=== PATIENT | female | born 1985 | race Caucasian/White ===

== ENCOUNTER 2020-11-12 05:19 | Emergency (ER) | payer OTHER, SELFPAY ==
[2020-11-12 05:44] VITALS: BP 136/48; PULSE 79; RESP 18; TEMP 36.3; O2SAT 99; BMI 29.2
--- NOTE | 2020-11-12 06:55 | ED.GENADULT ---
HPI - General Adult General Chief complaint: Neck Pain/Injury Stated complaint: NECK/SHOULDER PAIN Time Seen by Provider: 11/12/20 06:17 Source: patient Mode of arrival: ambulatory History of Present Illness HPI narrative: 35-year-old female with history of RA currently on methotrexate and Humira presents with pain across the right shoulder that extends from the right paraspinal neck and she states extends down until just before her right elbow. She denies any numbness or tingling or weakness into the right upper extremity, denies any fevers/chills, denies sleeping in a bad position or any new physical activity that might have caused a muscle strain. Related Data Previous Rx's Medication Instructions Recorded cyclobenzaprine 10 mg PO BEDTIME PRN #3 tab 11/12/20 ketorolac 10 mg PO Q6H PRN 5 Days #20 tab 11/12/20 Allergies Allergy/AdvReac Type Severity Reaction Status Date / Time No Known Allergies Allergy Unverified 03/22/20 16:19 [No Known Allergies*] shrimp Allergy Unknown facial Uncoded 03/31/19 00:00 swelling Review of Systems Review of Systems: Pertinent positives and negatives as stated in HPI 10 point review of systems is otherwise negative. PMFSH Past Medical History Source: nursing notes reviewed Medical History Asthma Rheumatoid arthritis Tendinitis Social History Social History Advance Directives: No Advance Directives Information Provided: No Patient : No Physical Exam Vital Signs: Vital Signs: Last Vital Signs Temp 97.3 F 11/12/20 05:44 Pulse 79 11/12/20 05:44 Resp 18 11/12/20 05:44 BP 136/48 L 11/12/20 05:44 Pulse Ox 99 11/12/20 05:44 Body Mass Index 29.2 VITAL SIGNS: Reviewed. GENERAL: Well developed, well nourished, in no acute distress. HEAD: Normocephalic/atraumatic EYES: PERRLA, EOMI= OROPHARYNX: no oral lesions noted, posterior pharynx clear = NECK: Supple, no adenopathy LUNGS: Normal breath sounds. No adventitious sounds or accessory muscle use. SpO2<99> CARDIOVASCULAR: Regular rate and rhythm without noted murmurs ABDOMEN: Soft, non-tender, non-distended with bowel sounds. MUSCULOSKELETAL: Noted firmness over the right trapezius extending from base of right neck out to shoulder and mildly tender on palpation EXTREMITIES: No cyanosis, clubbing or edema. SKIN: Inspection of the skin reveals no rashes NEUROLOGIC: Alert and oriented x 4. Strength and sensation to light touch were grossly intact x 4, symmetric hand health and physical education professor 5/5, neurovascular intact to both upper extremities Course Course Course Narrative: 35-year-old female with history and clinical presentation most consistent with muscle spasm and will treat with combination analgesics and lidocaine patch. No evidence of infection at this time and low clinical suspicion for a shingles type presentation. On re-evaluation patient reports good improvement of her pain and will be discharged in stable condition. She has follow-up appointment with her commercial sales consultant this afternoon at 3:00 p.m.. Discharge Plan Discharge Clinical Impression: Muscle spasm Patient Disposition: Home, Self-Care Instructions: Muscle Spasm (ED) Additional Instructions: Please follow-up with your commercial sales consultant as scheduled. Tylenol 1000 mg, orally, every 6 hours as needed for pain control. Do not exceed 4000 mg within 24 hours. Lidocaine patch, these are available in every [facility], apply to area of maximal tenderness as directed on the outside packaging. Return to the emergency department should you experience any acute worsening or change in symptoms. Prescriptions: New cyclobenzaprine 10 mg tablet 10 mg PO BEDTIME PRN (Reason: muscle spasm) Qty: 3 RF: 0 ketorolac 10 mg tablet 10 mg PO Q6H PRN (Reason: pain) 5 Days Qty: 20 RF: 0 Referrals: Josh Trammell MD [Primary Care Provider] - 2 days
[2020-11-12] MEDS: Lidocaine 4 % Patch ADH..PATCH 1 PATCH TRANSDERMA (07:06)
[2020-11-12] MEDS: Acetaminophen 325 MG TABLET 975 MG PO (07:06)
[2020-11-12] MEDS: Ketorolac Tromethamine 15 MG/ML VIAL IM (07:06)
== END 2020-11-12 07:31 | disposition home or self-care (01) ==
PROVIDERS: Emergency Provider Student in an Organized Health Care Education/Training Program; PCP Internal Medicine
DX: M54.2 Cervicalgia (principal); M62.838 Other muscle spasm; Z79.899 Other long term (current) drug therapy
CPT/HCPCS: 96372; 99283; 99284; J1885

== ENCOUNTER 2020-11-25 16:22 | Emergency (ER) | payer OTHER, SELFPAY ==
--- NOTE | ~2020-11-25 | CT_ITS ---
EXAMINATION: CT ABDOMEN AND PELVIS WITHOUT CONTRAST CLINICAL INFORMATION: Severe left flank pain. History of kidney stones COMPARISON: Portions of a previous CT 07/21/16 TECHNIQUE: Multidetector volumetric imaging was performed from the superior aspect of the liver through the pubic symphysis. Sagittal and coronal reformatted images were obtained on the technologist's workstation. This CT examination was performed using dose optimization techniques as appropriate, variously including the following: *Automated exposure control *Adjustment of mA and/or kV according to patient size (this includes techniques or standardized protocols for targeted exams where dose is matched to indication/reason for exam; i.e. extremities or head) *Use of iterative reconstruction technique DLP: 522 mGy-cm FINDINGS: Digital Skate Boarder: Densities overlie the patient. Nonobstructed gas pattern. LUNG BASES: No suspicious abnormality in the visualized lower chest LIVER, GALLBLADDER, AND BILIARY TREE: The liver contour appears smooth. No focal liver lesion. There is no opaque gallstone. The gallbladder is not distended. There is no biliary dilation PANCREAS: No definite abnormality SPLEEN: Within normal limits ADRENAL GLANDS: Normal KIDNEYS AND URETERS: There is no dilation of the urinary collecting system on either side. No suspicious renal mass. There is a nonobstructing 0.3 cm calculus in the upper pole of the right kidney 9 cm from the skin BLADDER: The bladder is essentially empty. No definite abnormality. GASTROINTESTINAL TRACT: No localized colonic wall thickening. No CT evidence of acute appendicitis. No small bowel dilation. No definite abnormality of the stomach. ABDOMINAL WALL: No significant hernia is appreciated. LYMPH NODES: There are no measurably enlarged abdominal or pelvic lymph nodes. No significant free intraperitoneal fluid. VASCULAR: There is no abdominal aortic aneurysm. PELVIC VISCERA: Limited assessment. No large abnormality. OSSEOUS STRUCTURES: No suspicious abnormality. CT/CT abdomen pelvis wo con IMPRESSION: No etiology for acute left flank pain. Specifically there is no evidence of left-sided urinary obstruction. There is a small nonobstructing upper pole right renal calculus.
[2020-11-25 16:35] VITALS: BP 109/76; PULSE 84; RESP 18; TEMP 36.7; O2SAT 98; BMI 29.2
--- NOTE | 2020-11-25 16:36 | ED.ABDPAIN ---
HPI - Abdominal Pain General Chief Complaint: Abdominal Pain Stated Complaint: Kidney Stone? Time Seen by Provider: 11/25/20 16:35 Source: patient Mode of arrival: ambulatory Limitations: no limitations History of Present Illness HPI narrative: 35 y/o female with history of asthma, kidney stones s/p ureteral stent in 2017 presenting with acute onset of nontraumatic left flank pain that started this morning, currently 10/10. No urinary symptoms. No N/V/D no fevers. She states she woke up with the pain, initially thought it was tightness and spasm from sleeping in an uncomfortable position. The pain worsened throughout the day as she moved around more. It feels similar to her prior kidney stone pain. MD elicited complaint: flank pain Pertinent past history: kidney stones Related Data Previous Rx's Medication Instructions Recorded cyclobenzaprine 10 mg PO BEDTIME PRN #3 tab 11/12/20 ketorolac 10 mg PO Q6H PRN 5 Days #20 tab 11/12/20 cyclobenzaprine 10 mg PO TID PRN #10 tab 11/25/20 ibuprofen 800 mg PO Q8H PRN #15 tab 11/25/20 lidocaine [Lidoderm] 1 patch TOPICAL DAILY #15 ea 11/25/20 Allergies Allergy/AdvReac Type Severity Reaction Status Date / Time No Known Allergies Allergy Verified 11/25/20 16:35 [No Known Allergies*] shrimp Allergy Unknown facial Uncoded 03/31/19 00:00 swelling Review of Systems Review of Systems Constitutional: No Fever, No Chills ENT/Mouth: No sore throat, No Rhinorrhea, No Swallowing Difficulty Eyes: No Eye Pain, No Swelling, No Redness Cardiovascular: No Chest Pain, No SOB, No Orthopnea, No Edema Respiratory: No Cough, No Sputum, No Wheezing, No dyspnea Gastrointestinal: No Nausea, No Vomiting, No Diarrhea, + abdominal Pain, No Hematochezia, No Melena Genitourinary: No Dysuria, No Urinary Frequency, No Hematuria Musculoskeletal: No joint pain, No Myalgias Skin: No Skin Lesions, No rash Neuro: No Weakness, No Numbness, No Dizziness, No Headache Psych: No Anxiety/Panic, No Depression Heme/Lymph: No Bruising, No Lymphadenopathy Endocrine: No Polyuria, No Polydipsia Physical Exam Vital Signs: Vital Signs: Last Vital Signs Temp 98.0 F 11/25/20 16:35 Pulse 84 11/25/20 16:35 Resp 18 11/25/20 16:35 BP 109/76 11/25/20 16:35 Pulse Ox 98 11/25/20 16:35 Body Mass Index 29.2 Appearance: Alert. Oriented X3. No acute distress. Eyes: Pupils equal, round and reactive to light. ENT: Pharynx normal. Neck: Normal inspection. Neck supple. CVS: Normal heart rate and rhythm. Pulses normal. Respiratory: No respiratory distress. Breath sounds normal. Abdomen: Soft and nontender. +BS x4. Left sided CVA tenderness, left sided paraspinal muscle tenderness and spasm. No HSM. Skin: Skin warm and dry. Normal skin color. Normal skin turgor. No rashes. Extremities: No lower extremity edema. Neuro: Oriented X 3. No motor deficit. No sensory deficit. Course Course Course Narrative: Rapid medical examination: 35 y/o female with history of asthma, kidney stones s/p ureteral stent in 2017 presenting with acute onset of nontraumatic left flank pain that started this morning, currently 10/10. No urinary symptoms. No N/V/D no fevers. Appears in pain in triage. IM toradol ordered. Suspect recurrent kidney stone. Labs, Upreg, and CT scan ordered. Reevaluation(s) Reevaluation #1: Urine is negative. Labs unremarkable aside from WBC 14K, question reactive. No signs or symptoms of infection. CT abd/pelvis is negative. She has no symptoms. Her pain is improved with Toradol that was given in triage. She states she has some residual spasm in her back. Will treat for muscular pain/strain and have her f/u with her PCP this week. Will d/c with muscle relaxer, NSAID and Lidoderm patches. Instructed to return if pain worsens or changes. Stable for d/c home. Patient agreeable with plan. MDM - Abdominal Pain Lab Data Result diagrams: 11/25/20 17:03 11/25/20 17:03 Labs: Lab Results 11/25/20 11/25/20 11/25/20 Range/Units 16:54 16:54 17:03 WBC 14.0 H (4.8-10.8) X10*3/uL RBC 4.15 L (4.20-5.50) X10*6/uL Hgb 12.6 (12.0-16.0) g/dl Hct 37.8 (37-47) % MCV 91.1 (80-98) fL MCH 30.4 (27.0-33.0) pg MCHC 33.3 (31.0-35.0) g/dl RDW 13.3 (11.0-16.0) % Plt Count 283 (160-400) X10*3/uL MPV 10.5 (9.4-12.3) fL Immature Gran % (Auto) 0.3 (0.0-0.4) % Neut % (Auto) 56.0 (45-73) % Lymph % (Auto) 32.2 (20-40) % [place] % (Auto) 7.7 (2-11) % Eos % (Auto) 3.4 (0-4) % Baso % (Auto) 0.4 (0-2) % Lymph # (Auto) 4.5 (1.2-4.9) X10*3/uL [place] # (Auto) 1.1 (0.1-1.2) X10*3/uL Eos # (Auto) 0.5 H (0.0-0.4) X10*3/uL Baso # (Auto) 0.1 (0.0-0.2) X10*3/uL Abs Immat Gran (auto) 0.04 H (0.00-0.03) X10*3/uL Absolute Neuts (auto) 7.9 (2.0-8.3) X10*3/uL Absolute Nucleated RBC 0.000 (0.0-0.012) X10*3/uL Nucleated RBC % (auto) 0.0 (0.0-0.2) /100WBC Hold Blue Top Sodium (135-145) mmol/L Potassium (3.3-5.1) mmol/L Chloride (96-108) mmol/L Carbon Dioxide (22-29) mmol/L Anion Gap (12-20) BUN (9-16) mg/dL Creatinine (0.5-1.4) mg/dL Estim Creat Clear Calc Estimated GFR Random Glucose (60-115) mg/dL Calcium (8.4-10.2) mg/dL Magnesium (1.6-2.6) mg/dL Total Bilirubin (0.0-1.0) mg/dL Direct Bilirubin (0.0-0.5) mg/dL AST (5-31) U/L ALT (0-31) U/L Alkaline Phosphatase (39-117) U/L Total Protein (6.5-8.0) g/dL Albumin (3.5-5.0) g/dL Urine Color YELLOW Urine Appearance CLEAR Urine pH 6.0 (5.0-8.0) Ur Specific [place] 1.025 (1.005-1.025) Urine Protein NEG (NEG-TRACE) MG/DL Urine Glucose (UA) NEG (NEG) MG/DL Urine Ketones NEG (NEG) MG/DL Urine Blood NEG (NEG) Urine Nitrite NEG (NEG) Ur Leukocyte Esterase NEG (NEG) Urine Test NEGATIVE (NEGATIVE) 11/25/20 11/25/20 Range/Units 17:03 17:03 WBC (4.8-10.8) X10*3/uL RBC (4.20-5.50) X10*6/uL Hgb (12.0-16.0) g/dl Hct (37-47) % MCV (80-98) fL MCH (27.0-33.0) pg MCHC (31.0-35.0) g/dl RDW (11.0-16.0) % Plt Count (160-400) X10*3/uL MPV (9.4-12.3) fL Immature Gran % (Auto) (0.0-0.4) % Neut % (Auto) (45-73) % Lymph % (Auto) (20-40) % [place] % (Auto) (2-11) % Eos % (Auto) (0-4) % Baso % (Auto) (0-2) % Lymph # (Auto) (1.2-4.9) X10*3/uL [place] # (Auto) (0.1-1.2) X10*3/uL Eos # (Auto) (0.0-0.4) X10*3/uL Baso # (Auto) (0.0-0.2) X10*3/uL Abs Immat Gran (auto) (0.00-0.03) X10*3/uL Absolute Neuts (auto) (2.0-8.3) X10*3/uL Absolute Nucleated RBC (0.0-0.012) X10*3/uL Nucleated RBC % (auto) (0.0-0.2) /100WBC Hold Blue Top SEE NOTE Sodium 140 (135-145) mmol/L Potassium 3.9 (3.3-5.1) mmol/L Chloride 107 (96-108) mmol/L Carbon Dioxide 25 (22-29) mmol/L Anion Gap 12 (12-20) BUN 10 (9-16) mg/dL Creatinine 0.74 (0.5-1.4) mg/dL Estim Creat Clear Calc 105.6 Estimated GFR > 60 Random Glucose 88 (60-115) mg/dL Calcium 9.1 (8.4-10.2) mg/dL Magnesium 2.0 (1.6-2.6) mg/dL Total Bilirubin 0.4 (0.0-1.0) mg/dL Direct Bilirubin < 0.2 (0.0-0.5) mg/dL AST 17 (5-31) U/L ALT 19 (0-31) U/L Alkaline Phosphatase 72 (39-117) U/L Total Protein 6.2 L (6.5-8.0) g/dL Albumin 3.9 (3.5-5.0) g/dL Urine Color Urine Appearance Urine pH (5.0-8.0) Ur Specific [place] (1.005-1.025) Urine Protein (NEG-TRACE) MG/DL Urine Glucose (UA) (NEG) MG/DL Urine Ketones (NEG) MG/DL Urine Blood (NEG) Urine Nitrite (NEG) Ur Leukocyte Esterase (NEG) Urine Test (NEGATIVE) Critical Care Time Critical Care Time Critical Care Time: No Discharge Plan Discharge Clinical Impression: Muscle spasm of back Patient Disposition: Home, Self-Care Instructions: Muscle Spasm (ED), Back Pain (ED) Additional Instructions: Your CT scan today was normal. Your urine test was normal. It is likely your left sided back pain is muscular in nature. No bending, lifting or twisting. Use ice several times per day for 20 minutes at a time for the next 48 hours and then change to heat. Take medications as prescribed to help with pain and discomfort. Follow up with your Primary Care Doctor this week. If your pain worsens, if you develop nausea, vomiting or any other concerning symptom call 911 or come back to the ER right away for evaluation. Prescriptions: New cyclobenzaprine 10 mg tablet 10 mg PO TID PRN (Reason: muscle spasm) Qty: 10 RF: 0 ibuprofen 800 mg tablet 800 mg PO Q8H PRN (Reason: pain) Qty: 15 RF: 0 lidocaine [Lidoderm] 5 % adhesive patch,medicated 1 patch topical DAILY Qty: 15 RF: 0 No Action cyclobenzaprine 10 mg tablet 10 mg PO BEDTIME PRN (Reason: muscle spasm) Qty: 3 RF: 0 ketorolac 10 mg tablet 10 mg PO Q6H PRN (Reason: pain) 5 Days Qty: 20 RF: 0 PMFSH Past Medical History Attestation statement: The following information was validated with the patient. Medical History Asthma Rheumatoid arthritis Tendinitis Social History Social History Advance Directives: No Advance Directives Information Provided: Yes Patient : No
[2020-11-25] MEDS: Ketorolac Tromethamine 60 MG/2 ML VIAL IM (16:41)
[2020-11-25 17:06] LABS: Glucose Urine UA NEG (NEG); Leukocyte Esterase Urine NEG (NEG); Nitrite Urine NEG (NEG); Specific Gravity - Urine 1.025 (1.005-1.025); Urine Blood NEG (NEG); Urine Ketones NEG (NEG); Urine Protein NEG (NEG-TRACE)
[2020-11-25 17:07] LABS: MANUAL DIFF FLAG NO
[2020-11-25 17:08] LABS: Basophils Absolute Auto 0.1 X10*3/uL (0.0-0.2); Basophils Percent Auto 0.4 % (0-2); Eosinophils Absolute Auto 0.5 X10*3/uL (0.0-0.4); Eosinophils Percent Auto 3.4 % (0-4); Hematocrit 37.8 % (37-47); Hemoglobin 12.6 g/dl (12.0-16.0); Imm Gran Abs Auto 0.04 X10*3/uL (0.00-0.03); Imm Gran Pct Auto 0.3 % (0.0-0.4); Lymphocytes Absolute Auto 4.5 X10*3/uL (1.2-4.9); Lymphocytes Percent Auto 32.2 % (20-40); Mean Corpuscular HGB Conc 33.3 g/dl (31.0-35.0); Mean Corpuscular Hemoglobin 30.4 pg (27.0-33.0); Mean Corpuscular Volume 91.1 fL (80-98); Mean Platelet Volume 10.5 fL (9.4-12.3); Monocytes Absolute Auto 1.1 X10*3/uL (0.1-1.2); Monocytes Percent Auto 7.7 % (2-11); Neutrophils Absolute Auto 7.9 X10*3/uL (2.0-8.3); Platelet Count 283 X10*3/uL (160-400); Red Blood Count 4.15 X10*6/uL (4.20-5.50); Red Cell Distribution Width 13.3 % (11.0-16.0)
[2020-11-25 17:25] LABS: Appearance Urine CLEAR; Color Urine YELLOW
[2020-11-25 17:32] LABS: Alanine Aminotransferase 19 U/L (0-31); Albumin Level 3.9 g/dL (3.5-5.0); Alkaline Phosphatase 72 U/L (39-117); Anion Gap 12 (12-20); Aspartate Amino Transferase 17 U/L (5-31); Bilirubin Direct < 0.2 mg/dL (0.0-0.5); Bilirubin Total 0.4 mg/dL (0.0-1.0); Blood Urea Nitrogen 10 mg/dL (9-16); Calcium 9.1 mg/dL (8.4-10.2); Carbon Dioxide 25 mmol/L (22-29); Chloride 107 mmol/L (96-108); Creatinine Clr Calc Pharmacy 105.6; Estimated Glomerular Filt Rate > 60; Glucose Random 88 mg/dL (60-115); Potassium 3.9 mmol/L (3.3-5.1); Sodium 140 mmol/L (135-145); Total Protein 6.2 g/dL (6.5-8.0)
[2020-11-25 17:42] LABS: UPreg QC Valid YES; Urine Pregnancy NEGATIVE (NEGATIVE)
[2020-11-25] MEDS: Lidocaine 4 % Patch ADH..PATCH 1 PATCH TRANSDERMA (20:45)
== END 2020-11-25 20:51 | disposition home or self-care (01) ==
LOC: HO.ED 20:29
PROVIDERS: Physician Assistant; Emergency Provider Emergency Medicine; PCP Internal Medicine
DX: M62.830 Muscle spasm of back (principal); R10.9 Unspecified abdominal pain; Z79.899 Other long term (current) drug therapy
CPT/HCPCS: 36415; 74176; 80048; 80076; 81003; 81025; 83735; 85025; 96372; 99283; 99284; J1885

== ENCOUNTER 2021-03-19 14:12 | Outpatient (REF) | payer OTHER, SELFPAY ==
[2021-03-27 22:03] LABS: HPV mRNA E6/E7 rflx Not Detected (Not Detected)
== END 2021-03-19 14:13 | disposition home or self-care (01) ==
LOC: HO.LAB 14:12
PROVIDERS: Visit Provider Advanced Practice Midwife
DX: Z01.411 Encounter for gynecological examination (general) (routine) with abnormal findings (principal); Z11.51 Encounter for screening for human papillomavirus (HPV); N64.4 Mastodynia; Z87.42 Personal history of other diseases of the female genital tract; Z20.2 Contact with and (suspected) exposure to infections with a predominantly sexual mode of transmission
CPT/HCPCS: 87624; 88142

== ENCOUNTER 2021-03-21 17:19 | Outpatient (REF) | payer OTHER, SELFPAY ==
[2021-03-22 09:58] LABS: CT PCR NOT DETECTED (Not Detect.); NG PCR NOT DETECTED (Not Detect.)
[2021-03-22 11:41] LABS: BV Int Neg Control Negative (Negative); BV Int Pos Control Positive (Positive)
== END 2021-03-21 17:20 | disposition home or self-care (01) ==
LOC: HO.LNP 17:19
PROVIDERS: Visit Provider Advanced Practice Midwife
DX: Z01.419 Encounter for gynecological examination (general) (routine) without abnormal findings (principal); Z11.3 Encounter for screening for infections with a predominantly sexual mode of transmission; Z20.2 Contact with and (suspected) exposure to infections with a predominantly sexual mode of transmission
CPT/HCPCS: 87480; 87491; 87510; 87591; 87660

== ENCOUNTER 2021-04-30 13:50 | Outpatient (REF) | payer OTHER, SELFPAY ==
--- NOTE | ~2021-04-30 | MM_ITS ---
EXAMINATION: MM DIAGNOSTIC DIGITAL BREAST TOMOSYNTHESIS, BILATERAL US DIAGNOSTIC ULTRASOUND BREAST, LEFT CLINICAL INFORMATION: Recurrent pain left breast over one year subareolar and lateral periareolar region, worse with menses. No palpable mass or discharge. No prior breast imaging. Age 35. No known family history breast cancer. The lifetime risk of breast cancer based on the Tyrer-Cuzick Model is 12%. COMPARISON: None (current study represents initial baseline exam). TECHNIQUE: Digital breast tomosynthesis is performed in both the craniocaudal and mediolateral oblique views along with computer-aided detection (CAD). Synthesized 2D images are generated from the tomosynthesis. Ultrasound left breast is targeted to the area of clinical concern subareolar and periareolar breast. Grayscale imaging and color Doppler are performed without and with harmonics. FINDINGS: There are scattered areas of fibroglandular density (ACR BI-RADS breast composition Category b). There is no significant mass or architectural abnormality. No abnormal calcifications. The axilla and skin contours are unremarkable. There is no skin thickening or retraction. No coarsening of the Live's ligaments. Ultrasound left breast demonstrates no cystic or solid mass or architectural abnormality. No duct ectasia. There is no skin thickening or edema tracking in soft tissue planes. Results are discussed with the patient at time of visit. MM/MM tomosynthesis diagnostic BI IMPRESSION: No mammographic evidence of malignancy or inflammatory changes. Unremarkable targeted left breast ultrasound. ASSESSMENT: BI-RADS 1: Negative RECOMMENDATION: 1. Patient's chronic intermittent left breast pain should be managed based on the clinical impression. 2. Otherwise, routine annual screening mammography, beginning age 40, or earlier as clinical risk factors warrant. This patient's information was entered into a reminder system with a target due date for their next mammogram.
== END 2021-04-30 13:51 | disposition home or self-care (01) ==
LOC: HO.MAMMO 13:50
PROVIDERS: Visit Provider Advanced Practice Midwife
DX: N64.4 Mastodynia (principal)
CPT/HCPCS: 76641; 77062; 77066

== ENCOUNTER 2021-09-05 12:04 | Emergency (ER) | payer OTHER, SELFPAY ==
--- NOTE | ~2021-09-05 | XR_ITS ---
EXAMINATION: XR CHEST CLINICAL INFORMATION: Cough with shortness of breath. History of asthma. COMPARISON: November 24, 2010 TECHNIQUE: 2 views of the chest were obtained. FINDINGS: No significant abnormality is noted involving the heart, lungs, mediastinum, bony thorax or soft tissues. XR/XR chest 2V IMPRESSION: No acute disease.
[2021-09-05 12:30] VITALS: BP 108/57; PULSE 99; RESP 18; TEMP 36.7; O2SAT 97; BMI 28.5
--- NOTE | 2021-09-05 13:02 | ED.ASTHMA ---
HPI - Asthma General Chief Complaint: Asthma Stated Complaint: diff breathing Time Seen by Provider: 09/05/21 12:44 Source: patient Limitations: no limitations History of Present Illness HPI Narrative: Patient has a longstanding history of asthma presents to the ER with 3 weeks of intermittent coughing congestion wheezing. Patient states minimal relief with inhalers. Symptoms mild to moderate. Patient states she had COVID-19 back in July and is on vaccinated. Patient denies any new sick contacts. Patient states cough is dry nonproductive. No recent travel history. Patient does have a history of tobacco use but that is decreased during this illness. No other complaints at this time Related Data Previous Rx's Medication Instructions Recorded cyclobenzaprine 10 mg tablet 10 mg PO BEDTIME PRN #3 tab 11/12/20 ketorolac 10 mg tablet 10 mg PO Q6H PRN 5 Days #20 tab 11/12/20 cyclobenzaprine 10 mg tablet 10 mg PO TID PRN #10 tab 11/25/20 ibuprofen 800 mg tablet 800 mg PO Q8H PRN #15 tab 11/25/20 lidocaine 5 % topical patch 1 patch TOPICAL DAILY #15 ea 11/25/20 (Lidoderm) metronidazole 500 mg tablet 500 mg PO BID 7 Days #14 tab 03/25/21 (Flagyl) albuterol sulfate 90 mcg/actuation 2 puff INHALATION Q4-6H PRN #8.5 g 09/05/21 aerosol inhaler (ProAir HFA) benzonatate 100 mg capsule 100 mg PO BID PRN #14 cap 09/05/21 fluticasone propionate 50 1 inh INHALATION BID #60 ea 09/05/21 mcg/actuation blister powder for inhalation (Flovent Diskus) prednisone 20 mg tablet 40 mg PO DAILY 5 Days #10 tab 09/05/21 Allergies Allergy/AdvReac Type Severity Reaction Status Date / Time No Known Allergies Allergy Verified 09/05/21 12:30 [No Known Allergies*] shrimp Allergy Unknown facial Uncoded 03/31/19 00:00 swelling Review of Systems Constitutional: Constitutional: Denies body ache(s), Denies chills, Denies fatigue, Denies fever(s) and Denies weakness ENT: Denies nasal congestion and Denies sore throat Cardiovascular: Cardiovascular: Denies chest pain and Reports dyspnea Respiratory: Respiratory: Reports cough, Denies excessive phlegm production, Denies pain with cough, Reports dyspnea and Reports wheezing Gastrointestinal: Gastrointestinal: Denies diarrhea, Denies nausea and Denies vomiting Musculoskeletal: Musculoskeletal: Denies abnormal gait, Denies back pain, Denies myalgias and Denies muscle weakness Neurologic: Denies abnormal gait and Denies weakness Endocrine: Endocrine: Denies fatigue Allergic/Immunologic: Allergic/Immunologic: Reports wheezing PMF Past Medical History Medical History Asthma COVID Rheumatoid arthritis Tendinitis Surgical History History of tubal ligation Social History Social History Alcohol intake: current Alcohol intake frequency: a few times a week Patient Tobacco Use Status: Current everyday Tobacco user Tobacco use type: Cigarette Cigarettes Per Day: 6 Advance Directives: No Advance Directives Information Provided: No Gender identity: Female Physical Exam Vital Signs: Vital Signs: Last Vital Signs Temp 98.0 F 09/05/21 12:30 Pulse 99 09/05/21 12:30 Resp 18 09/05/21 12:30 BP 108/57 L 09/05/21 12:30 Pulse Ox 97 09/05/21 12:30 BMI result Body Mass Index 28.5 vital signs have been reviewed as normal and appeared to be correct. Blood pressure normal. Heart rate normal. Respiration rate normal. Temperature normal. Oxygen saturation normal. Appearance: Alert. Oriented X3. No acute distress. Head: Normal external exam. Normocephalic. Atraumatic. Eyes: PERRLA. EOMI. Conjunctiva and sclera normal. Eyelids normal. ENT: Pharynx normal. Uvula midline. Moist mucous membranes. No trismus noted. Neck: Soft full range of motio CVS: Heart regular rate and rhythm no murmurs and rubs Respiratory: Breath sounds faint expiratory wheeze no accessory muscle use no retractions. No respiratory distress. Abdomen: Soft nontender no rebound or guarding positive bowel sounds Back: Full range of motion noted Skin: Skin warm and dry. Normal skin color. No ecchymosis or rashes noted Extremities: No lower extremity edema. Extremities exhibit normal range of motion. Extremities nontender. Neuro: Oriented X 3. No motor deficit. No sensory deficit. Reflexes normal. Course Course Course Narrative: Asthma exacerbation Reactive airway disease Post COVID reactive airway disease Pneumonia Acute bronchitis Influenza COVID-19 Chest x-ray is pending COVID-19 influenza a and B swabs pending 13:40 chest x-ray is negative COVID-19 swab is negative Influenza a and B is negative will treat patient symptomatically. Patient recently took 1-2 weeks of 5-10 mg of prednisone a day without relief. Will also add inhaled steroid. MDM - Asthma Lab Data Labs: Lab Results 09/05/21 Range/Units 13:04 COVID-19 (KAMILAH) Negative (Negative) COVID-19 Clin Com See Note Imaging Data Chest x-ray: Radiologist's impression: [address] [address] XRay Report Signed Patient: Petra Herbert MR#: [id number] : 1985 Acct:[id number] Age/Sex: 36 / F ADM Date: 09/05/21 Loc: .ED Attending Dr: Ordering Physician: Rosa Mason DO Date of Service: 09/05/21 Procedure(s): XR chest 2V Accession Number(s): [id number] cc: Rosa Mason DO~ EXAMINATION: XR CHEST CLINICAL INFORMATION: Cough with shortness of breath. History of asthma. COMPARISON: November 24, 2010 TECHNIQUE: 2 views of the chest were obtained. FINDINGS: No significant abnormality is noted involving the heart, lungs, mediastinum, bony thorax or soft tissues. XR/XR chest 2V IMPRESSION: No acute disease. Dictated By: Nestor Greenwood MD Signed By: <Electronically signed by Nestor Greenwood MD in OV> 09/05/21 1334 DD/ 1257 TD/TT:? Cardiac Cath Technician: SK Discharge Plan Discharge Clinical Impression: Asthma Patient Disposition: Home, Self-Care Instructions: Asthma (DC) Additional Instructions: COVID-19 test is negative Chest x-rays negative It Is advised close follow-up with PCP with possible referral to pulmonology Is symptoms may be due to her asthma and recovery from COVID-19 Prescriptions: New albuterol sulfate [ProAir HFA] 90 mcg/actuation HFA aerosol inhaler 2 puff inhalation Q4-6H PRN (Reason: wheezing) Qty: 8.5 0RF Flovent Diskus 50 mcg/actuation blister with device 1 inh inhalation BID Qty: 60 0RF benzonatate 100 mg capsule 100 mg PO BID PRN (Reason: cough) Qty: 14 0RF prednisone 20 mg tablet 40 mg PO DAILY 5 Days Qty: 10 0RF No Action metronidazole [Flagyl] 500 mg tablet 500 mg PO BID 7 Days Qty: 14 0RF Rx Instructions: Take with food, Avoid alcohol and vinegar products cyclobenzaprine 10 mg tablet 10 mg PO TID PRN (Reason: muscle spasm) Qty: 10 0RF ibuprofen 800 mg tablet 800 mg PO Q8H PRN (Reason: pain) Qty: 15 0RF lidocaine [Lidoderm] 5 % adhesive patch,medicated 1 patch topical DAILY Qty: 15 0RF Rx Instructions: leave on most painful area for up to 12 hrs cyclobenzaprine 10 mg tablet 10 mg PO BEDTIME PRN (Reason: muscle spasm) Qty: 3 0RF ketorolac 10 mg tablet 10 mg PO Q6H PRN (Reason: pain) 5 Days Qty: 20 0RF Rx Instructions: Patient received IM Toradol in the emergency room. Referrals: Josh Trammell MD [Primary Care Provider] - 2 days (Recurrent asthma status post COVID-19 in July) Stand Alone Forms: Work/School Release
[2021-09-05 13:28] LABS: COVID-19 Test Negative (Negative)
[2021-09-05 13:38] LABS: Influenza A Negative (Negative); Influenza B2 Negative (Negative)
[2021-09-05 13:59] VITALS: BP 116/76; PULSE 89; RESP 16; O2SAT 99
== END 2021-09-05 14:03 | disposition home or self-care (01) ==
PROVIDERS: Physician Assistant; Emergency Provider Emergency Medicine; PCP Internal Medicine
DX: J45.909 Unspecified asthma, uncomplicated (principal); Z20.822 Contact with and (suspected) exposure to COVID-19; F17.200 Nicotine dependence, unspecified, uncomplicated
CPT/HCPCS: 71046; 87502; 87635; 99283; 99284

== ENCOUNTER 2022-01-08 13:23 | Outpatient (REF) | payer OTHER, SELFPAY ==
--- NOTE | ~2022-01-08 | XR_ITS ---
EXAMINATION: XR CHEST CLINICAL INFORMATION: Asthma COMPARISON: Previous chest x-ray September 2021 TECHNIQUE: 2 views of the chest were obtained. FINDINGS: No significant abnormality is noted involving the heart, lungs, mediastinum, bony thorax or soft tissues. XR/XR chest 2V IMPRESSION: Unremarkable examination.
== END 2022-01-08 13:24 | disposition home or self-care (01) ==
LOC: HO.XRAY 13:23
PROVIDERS: PCP Internal Medicine; Visit Provider Nurse Practitioner Family
DX: J45.901 Unspecified asthma with (acute) exacerbation (principal)
CPT/HCPCS: 71046

== ENCOUNTER 2022-01-30 11:47 | Outpatient (REF) | payer OTHER, SELFPAY ==
[2022-01-30 12:22] LABS: COVID-19 Test Positive (Negative); IDNOW Serial# 9DB6401D
== END 2022-01-30 11:48 | disposition home or self-care (01) ==
LOC: HO.LAB 11:47
PROVIDERS: Visit Provider Internal Medicine
DX: Z20.822 Contact with and (suspected) exposure to COVID-19 (principal)
CPT/HCPCS: 87635; C9803

== ENCOUNTER 2022-02-09 10:23 | Emergency (ER) | payer OTHER, SELFPAY ==
[2022-02-09 10:33] VITALS: BP 114/76; PULSE 105; RESP 26; TEMP 36.6; O2SAT 97; BMI 28.3
[2022-02-09 10:46] VITALS: PULSE 87; RESP 18; O2SAT 95
[2022-02-09 11:13] VITALS: BP 103/61; PULSE 91; RESP 16; TEMP 36.8; O2SAT 100
[2022-02-09] MEDS: predniSONE 20 MG TABLET 60 MG PO (11:19)
[2022-02-09 11:45] LABS: COVID-19 Test Negative (Negative)
[2022-02-09 11:46] LABS: IDNOW Serial# 08D9AD1C; Influenza A Negative (Negative); Influenza B2 Negative (Negative)
--- NOTE | 2022-02-09 11:52 | ED.SOB ---
HPI - SOB/Dyspnea General Chief Complaint: Dyspnea Stated Complaint: asthma, hard time breathing Time Seen by Provider: 02/09/22 10:37 History of Present Illness HPI Narrative: Patient complains of wheezing and chest tightness from her asthma same as prior asthma that has not been relieved with her inhaler at home She denies any fever, no productive cough Related Data Home Medications Medication Instructions Recorded Confirmed adalimumab 40 mg/0.4 mL 40 mg subcut Q2W 01/01/22 subcutaneous pen kit (Humira(CF) Pen) diclofenac sodium 75 mg 75 mg PO BID PRN pain 01/01/22 tablet,delayed release folic acid 1 mg tablet 1 mg PO BID 01/01/22 methotrexate sodium 2.5 mg tablet 20 mg PO QWEEK 01/01/22 prednisone 5 mg tablet 5 mg PO DAILY PRN 01/01/22 Previous Rx's Medication Instructions Recorded lidocaine 5 % topical patch 1 patch topical DAILY #15 ea 11/25/20 (Lidoderm) albuterol sulfate 2.5 mg/3 mL 2.5 mg (3 mL) continuous 12/24/21 (0.083 %) solution for nebulization nebulization QID PRN shortness of breath or wheezing 30 days #120 mL albuterol sulfate 90 mcg/actuation 2 puff inhalation Q6-8H PRN 01/01/22 aerosol inhaler (ProAir HFA) wheezing #8.5 grams doxycycline monohydrate 100 mg 100 mg PO BID 7 days #14 caps 01/01/22 capsule fluticasone propionate 50 1 inh inhalation BID #60 ea 01/01/22 mcg/actuation blister powder for inhalation (Flovent Diskus) prednisone 20 mg tablet 40 mg PO DAILY 5 days #10 tabs 01/01/22 albuterol sulfate 2.5 mg/3 mL 2.5 mg (3 mL) inhalation Q6H PRN 02/09/22 (0.083 %) solution for nebulization shortness of breath or wheezing #75 mL albuterol sulfate 90 mcg/actuation 2 puff inhalation Q4-6H PRN 02/09/22 aerosol inhaler shortness of breath or wheezing #8.5 grams prednisone 20 mg tablet 60 mg PO DAILY 5 days #15 tabs 02/09/22 Allergies Allergy/AdvReac Type Severity Reaction Status Date / Time No Known Allergies Allergy Verified 01/01/22 16:11 [No Known Allergies*] shrimp Allergy Unknown facial Uncoded 01/01/22 16:11 swelling Review of Systems Review of Systems: Positive for wheezing chest tightness and shortness of breath Negatives are no fever no chills no dizziness or weakness no fainting no feeling faint no headache no neck pain no chest pain no cough no sputum no abdominal pain no nausea or vomiting no leg swelling no calf pain or swelling Yes all other systems are reviewed and are negative PMFSH Past Medical History Source: nursing notes reviewed Medical History (Updated 02/09/22 @ 12:09 by NICKY Dyer) Asthma COVID DAJUAN on CPAP Rheumatoid arthritis Tendinitis Surgical History History of tubal ligation Family History Family History (Updated 01/01/22 @ 15:53 by MARIAJOSE Irwin) Mother Arthritis Father Arthritis Social History Social History (Updated 01/01/22 @ 15:53 by MARIAJOSE Irwin) Housing: Apartment Alcohol intake: current Alcohol intake frequency: does not drink Patient Tobacco Use Status: Current everyday Tobacco user Tobacco use type: Cigarette Cigarettes Per Day: 2 e-Cigarette/Vaping Use: Never Used Second Hand Smoke Exposure: No Advance Directives: No Advance Directives Information Provided: Yes service: No Current occupational status: employed Gender identity: Female Cognitive needs: No Hearing needs: No Vision needs: No Physical Exam Vital Signs: Vital Signs: Last Vital Signs Temp 98.2 F 02/09/22 12:06 Pulse 93 02/09/22 12:06 Resp 18 02/09/22 12:06 BP 112/62 02/09/22 12:06 Pulse Ox 98 02/09/22 12:06 O2 Del Method 02/09/22 12:06 BMI result Body Mass Index 28.3 General appearance no acute distress but short of breath, is able to speak full sentences, no tripoding The eyes no redness or discharge The pharynx is clear without redness swelling or exudate, mucous membranes moist Neck is supple The chest had bilateral wheezes with prolonged expiration but good air movement The heart no murmur Abdomen soft nontender Extremities no edema, no calf tenderness or swelling Skin no rashes Course Course Course Narrative: Patient was given a an hour long neb with excellent relief of symptoms and she felt improved with no shortness of breath Vital signs were normal, repeat lung exam there were scattered wheezes but very improved with no longer any prolonged expiration and good full air movement bilaterally MDM - SOB/Dyspnea Lab Data Labs: Lab Results 02/09/22 02/09/22 Range/Units 11:07 11:07 COVID-19 (KAMILAH) Negative (Negative) COVID-19 Clin Com See Note Influenza Type A (CYNDY) Negative (Negative) Influenza Type B (CYNDY) Negative (Negative) Influenza A & B Note See Note Discharge Plan Discharge Clinical Impression: Asthma Patient Disposition: Home, Self-Care Additional Instructions: After treatment your lungs were clear and breath sounds were strong Take prednisone for 5 days and albuterol if needed Return to the ER any time any worse condition, any difficulty breathing any concerns Prescriptions: New albuterol sulfate 2.5 mg /3 mL (0.083 %) solution for nebulization 2.5 mg inhalation Q6H PRN (Reason: shortness of breath or wheezing) Qty: 75 0RF albuterol sulfate 90 mcg/actuation HFA aerosol inhaler 2 puff inhalation Q4-6H PRN (Reason: shortness of breath or wheezing) Qty: 8.5 0RF prednisone 20 mg tablet 60 mg PO DAILY 5 Days Qty: 15 0RF No Action albuterol sulfate 2.5 mg /3 mL (0.083 %) solution for nebulization 2.5 mg continuous nebulization QID PRN (Reason: shortness of breath or wheezing) 30 Days Qty: 120 3RF lidocaine [Lidoderm] 5 % adhesive patch,medicated 1 patch topical DAILY Qty: 15 0RF Rx Instructions: leave on most painful area for up to 12 hrs methotrexate sodium 2.5 mg tablet 20 mg PO QWEEK diclofenac sodium 75 mg tablet,delayed release (DR/EC) 75 mg PO BID PRN (Reason: pain) prednisone 5 mg tablet 5 mg PO DAILY PRN folic acid 1 mg tablet 1 mg PO BID Humira(CF) Pen 40 mg/0.4 mL pen injector kit 40 mg subcut Q2W Flovent Diskus 50 mcg/actuation blister with device 1 inh inhalation BID Qty: 60 0RF albuterol sulfate [ProAir HFA] 90 mcg/actuation HFA aerosol inhaler 2 puff inhalation Q6-8H PRN (Reason: wheezing) Qty: 8.5 0RF doxycycline monohydrate 100 mg capsule 100 mg PO BID 7 Days Qty: 14 0RF prednisone 20 mg tablet 40 mg PO DAILY 5 Days Qty: 10 0RF Stand Alone Forms: Work/School Release Interventions: ED Discharge Assessment Last Done: 02/09/22 12:27 Discharge Date/Time: 02/09/22 12:28
[2022-02-09 12:06] VITALS: BP 112/62; PULSE 93; RESP 18; TEMP 36.8; O2SAT 98
== END 2022-02-09 12:28 | disposition home or self-care (01) ==
PROVIDERS: Physician Assistant Medical; Emergency Provider Emergency Medicine; PCP Internal Medicine
DX: J45.909 Unspecified asthma, uncomplicated (principal); Z86.16 Personal history of COVID-19; F17.210 Nicotine dependence, cigarettes, uncomplicated
CPT/HCPCS: 87502; 87635; 94640; 99284

== ENCOUNTER 2022-02-23 07:36 | Emergency (ER) | payer OTHER, SELFPAY ==
[2022-02-23 07:38] VITALS: BP 119/75; PULSE 88; RESP 18; TEMP 36.3; O2SAT 96
== END 2022-02-23 09:29 | disposition left against medical advice (07) ==
PROVIDERS: Emergency Provider Emergency Medicine; PCP Internal Medicine
DX: J45.909 Unspecified asthma, uncomplicated (principal)

== ENCOUNTER → 2022-02-27 15:31 | Outpatient (BNVA) | payer OTHER, SELFPAY | PROVIDERS: PCP Internal Medicine; Visit Provider Internal Medicine | DX: J45.909 Unspecified asthma, uncomplicated (principal); G47.33 Obstructive sleep apnea (adult) (pediatric); M06.9 Rheumatoid arthritis, unspecified; F17.210 Nicotine dependence, cigarettes, uncomplicated; Z79.899 Other long term (current) drug therapy; Z86.16 Personal history of COVID-19; Z99.89 Dependence on other enabling machines and devices | CPT/HCPCS: 99202 ==

== ENCOUNTER 2022-03-31 08:03 | Outpatient (REF) | payer OTHER, SELFPAY ==
--- NOTE | 2022-03-31 17:27 | PFT_ITS ---
FLOWS: FEV1 80% of predicted at 2.45 L. FVC 93% of predicted at 3.43 L. FEV1 to FVC ratio of 0.71. Positive bronchodilator response. LUNG VOLUMES: Total lung capacity 97% of predicted at 4.93 L. Residual volume 120% of predicted at 1.85 L. Slow vital capacity 87% of predicted at 3.08 L. Expiratory reserve volume 77% of predicted at 0.97 L. Diffusion capacity is normal. IMPRESSION: Reversible moderate to severe obstructive ventilatory defect with positive bronchodilator response. Increased residual volume suggests air trapping. Charlie Chicas MD AP/MODL / [id number]
== END 2022-03-31 08:04 | disposition home or self-care (01) ==
LOC: HO.RESP 08:03
PROVIDERS: PCP Internal Medicine; Visit Provider Internal Medicine
DX: F17.200 Nicotine dependence, unspecified, uncomplicated (principal); J45.909 Unspecified asthma, uncomplicated; Z86.16 Personal history of COVID-19
CPT/HCPCS: 94060; 94727; 94729

== ENCOUNTER → 2022-04-09 15:51 | Outpatient (BNVA) | payer OTHER, SELFPAY | PROVIDERS: PCP Internal Medicine; Visit Provider Internal Medicine | DX: J45.909 Unspecified asthma, uncomplicated (principal); F17.210 Nicotine dependence, cigarettes, uncomplicated; Z86.16 Personal history of COVID-19 | CPT/HCPCS: 99212 ==

== ENCOUNTER 2022-05-14 13:23 | Outpatient (REF) | payer OTHER, SELFPAY ==
[2022-05-15 09:06] LABS: BV Int Neg Control Negative (Negative); BV Int Pos Control Positive (Positive)
[2022-05-15 09:18] LABS: CT PCR NOT DETECTED (Not Detect.); NG PCR NOT DETECTED (Not Detect.)
== END 2022-05-14 13:24 | disposition home or self-care (01) ==
LOC: HO.LNP 13:23
PROVIDERS: Visit Provider Advanced Practice Midwife
DX: Z01.419 Encounter for gynecological examination (general) (routine) without abnormal findings (principal)
CPT/HCPCS: 87480; 87491; 87510; 87591; 87660

== ENCOUNTER → 2022-11-25 10:28 | Outpatient (BNVA) | payer OTHER, SELFPAY | PROVIDERS: PCP Internal Medicine; Visit Provider Internal Medicine | DX: J45.909 Unspecified asthma, uncomplicated (principal); J30.9 Allergic rhinitis, unspecified; G47.33 Obstructive sleep apnea (adult) (pediatric); Z99.89 Dependence on other enabling machines and devices | CPT/HCPCS: 99212 ==

== ENCOUNTER 2023-01-06 10:43 | Emergency (ER) | payer OTHER, SELFPAY ==
[2023-01-06 10:46] VITALS: BP 125/55; PULSE 92; RESP 18; TEMP 36.2; O2SAT 95; BMI 28.3
--- NOTE | 2023-01-06 11:40 | ED_ITS ---
HPI - Abdominal Pain General Chief Complaint: Abdominal Pain Stated Complaint: Lower abd pain/back pain Time Seen by Provider: 01/06/23 11:36 Source: patient, RN notes reviewed and old records reviewed Mode of arrival: ambulatory History of Present Illness HPI narrative: 37-year-old female with a past medical history of allergic rhinitis, asthma, DAJUAN on CPAP, RA noncompliant on Humira, presenting to the ED complaining of right groin pain radiating to right flank & right upper thigh since last night. Admits pain has been constant, worse with movement and palpation. Denies known injury, trauma/fall or heavy lifting. Denies nausea/vomiting, dysuria/hematuria, vaginal bleeding/discharge. Patient currently on menses MD elicited complaint: flank pain and other Related Data Home Medications Medication Instructions Recorded Confirmed adalimumab 40 mg/0.4 mL 40 mg subcut Q2W 01/01/22 05/14/22 subcutaneous pen kit (Humira(CF) Pen) diclofenac sodium 75 mg 75 mg PO BID PRN pain 01/01/22 05/14/22 tablet,delayed release methotrexate sodium 2.5 mg tablet 20 mg PO QWEEK 01/01/22 05/14/22 lidocaine 5 % topical patch 1 patch topical DAILY PRN 11/25/22 (Lidoderm) Previous Rx's Medication Instructions Recorded albuterol sulfate 2.5 mg/3 mL 2.5 mg (3 mL) continuous 12/24/21 (0.083 %) solution for nebulization nebulization QID PRN shortness of breath or wheezing 30 days #120 mL Ventolin HFA 90 mcg/actuation 2 puff inhalation Q6-8H PRN 11/25/22 aerosol inhaler (albuterol sulfate) wheezing #18 grams budesonide-formoterol HFA 160 2 puff inhalation BID Asthma 30 11/25/22 mcg-4.5 mcg/actuation aerosol days #10.2 grams inhaler (Symbicort) acetaminophen 500 mg tablet 500 mg PO Q6H PRN fever or pain 01/06/23 (Tylenol Extra Strength) #14 tabs cyclobenzaprine 5 mg tablet 5 mg PO Q8H PRN pain (scale score 01/06/23 7-10) 5 days #14 tabs lidocaine 5 % topical patch 1 patch topical DAILY PRN pain #30 01/06/23 (Lidoderm) ea naproxen 500 mg tablet 500 mg PO BID PRN pain 10 days #20 01/06/23 tabs Allergies Allergy/AdvReac Type Severity Reaction Status Date / Time No Known Allergies Allergy Verified 11/25/22 11:06 [No Known Allergies*] Review of Systems Review of Systems Constitutional: No Fever, No Chills, No Fatigue, No Malaise ENT/Mouth: No Ear Pain, No Nasal Congestion, No sore throat, No Rhinorrhea, No Swallowing Difficulty Eyes: No Eye Pain, No Swelling, No Redness Cardiovascular: No Chest Pain, No SOB, No Edema, No Palpitations Respiratory: No Cough, No Sputum, No Dyspnea Gastrointestinal: No Nausea, No Vomiting, No Diarrhea, No Constipation, + Abdominal pain Genitourinary: No irregular bleeding, No Dysuria, No Urinary Frequency, No Hematuria, No Urinary Incontinence/retention, No Urgency, + Flank Pain Musculoskeletal: +joint pain, +Myalgias, No Joint Swelling Skin: No Skin Lesions, No rash Neuro: No Weakness, No Numbness, No Paresthesias Yes all other systems are reviewed and are negative Constitutional: Reports as per [facility] Past Medical History Attestation statement: The following information was validated with the patient. Source: old records reviewed Medical History Allergic rhinitis Asthma COVID DAJUAN on CPAP Rheumatoid arthritis Rheumatoid arthritis Smoker Tendinitis Surgical History History of tubal ligation Family History Family History Mother Arthritis Father Arthritis Social History Social History Housing: Apartment Alcohol intake: unknown Patient Tobacco Use Status: Current someday Tobacco user Tobacco use type: Cigarette Cigarettes Per Day: 2 Smoked in Last 30 Days: No e-Cigarette/Vaping Use: Never Used Second Hand Smoke Exposure: No Use of substances other than those prescribed or required for medical reasons: Unknown Advance Directives: No Advance Directives Information Provided: Yes Patient : No service: No Current occupational status: employed Gender identity: Female Cognitive needs: No Hearing needs: No Vision needs: No Physical Exam ED Vital Signs: Vital Signs - 24 hr 01/06/23 10:46 01/06/23 13:18 Temperature 97.2 F 97.6 F Pulse Rate 92 76 Respiratory Rate 18 14 Blood Pressure 125/55 L 123/65 Pulse Oximetry 95 96 Oxygen Delivery Method Room Air Room Air BMI result Body Mass Index 28.3 Const General: cooperative, healthy appearing and no acute distress Orientation/consciousness: patient oriented x3 Limitations: no limitations HENMT Head: Yes normal to inspection and Yes atraumatic Ears: hearing grossly normal bilaterally General nose exam: Normal external nose present Face and sinus: Yes normal facial exam Eyes General: appearance normal, both eyes and all related structures EOM: EOMs intact bilaterally Neck Neck: Yes normal visual inspection and Yes no meningeal signs Resp Effort & Inspection: normal respiratory effort and no respiratory distress Cardio Rate: regular rate GI Inspection: Yes normal to inspection Palpation (GI): Soft to palpation, nontender, no guarding and not rigid General: Yes no CVA tenderness Back/Spine/Pelvis Back: no CVA tenderness Skin Rashes: no rashes Wounds: no wounds Neuro General: patient oriented x3, tone normal and no meningeal signs Gait exam (Neuro): Normal gait present Extrem Other: + right groin tenderness to palpation, pain also elicited with external rotation of hip. No appreciable erythema/lesions, warmth or rash General: Yes normal to inspection Course Course Course Narrative: 1506--mild leukocytosis > likely reactive from pain. Labs otherwise reassuring. UA not infected, no blood > renal stone less likely -XR hip RT w PEL1V IMPRESSION: Normal right hip and pelvis radiographs. > on re-evaluation patient reports symptomatic improvement after medications given in the ED, is ambulating with steady gait. Plan to discharge home with naproxen/Flexeril in close follow-up. Results discussed with patient including worrisome signs and symptoms and strict return precautions, and when to return to the emergency department. They verbalized understanding and feel safe for discharge at this time. Medical Decision Making Medical Decision Making MDM Narrative: 37-year-old female with a past medical history of allergic rhinitis, asthma, DAJUAN on CPAP, RA noncompliant on Humira, presenting to the ED complaining of right groin pain radiating to right flank & right upper thigh since last night. On exam vital signs stable, NAD, nontoxic appearing, abdomen soft/nontender, no CVAT. Right groin with reproducible tenderness, pain also elicited on external rotation of right hip. Neurovascular intact distally. No erythema/warmth or rash. Concern for groin strain/MSK pain vs renal stone although no CVAT. Lower suspicion for hernia/strangulated or incarcerated, ovarian torsion/cyst, appendicitis, pyelo/UTI, cauda equina/cord compression or epidural abscess Plan: Labs, UA, x-ray, pain control, re-evaluate Please refer to course for remaining clinical decision making, interpretation of labs/imaging results, and discussions with consultants and/or family members. Differential Diagnosis Differential Diagnoses: The differential diagnosis associated with the presentation includes As above Admission/Observation Consideration of admission/observation: Escalation of care including a dmission/observation considered Lab Data MDM Lab Attestation statement: I reviewed the patient's lab results. 01/06/23 11:46 01/06/23 11:46 Labs: Lab Results 01/06/23 01/06/23 01/06/23 Range/Units 11:46 11:46 13:22 WBC 15.5 H (4.8-10.8) X10*3/uL RBC 4.95 (4.20-5.50) X10*6/uL Hgb 14.7 (12.0-16.0) g/dl Hct 44.3 (37.0-47.0) % MCV 89.5 (80.0-98.0) fL MCH 29.7 (27.0-33.0) pg MCHC 33.2 (31.0-35.0) g/dl RDW 13.4 (11.0-16.0) % Plt Count 289 (160-400) X10*3/uL MPV 10.7 (9.4-12.3) fL Immature Gran % (Auto) 0.4 (0.0-0.4) % Neut % (Auto) 70.6 (45-73) % Lymph % (Auto) 14.4 L (20-40) % [place] % (Auto) 8.7 (2-11) % Eos % (Auto) 5.6 H (0-4) % Baso % (Auto) 0.3 (0-2) % Lymph # (Auto) 2.2 (1.2-4.9) X10*3/uL [place] # (Auto) 1.3 H (0.1-1.2) X10*3/uL Eos # (Auto) 0.9 H (0.0-0.4) X10*3/uL Baso # (Auto) 0.1 (0.0-0.2) X10*3/uL Abs Immat Gran (auto) 0.06 H (0.00-0.03) X10*3/uL Absolute Neuts (auto) 10.9 H (2.0-8.3) x10*3/uL Absolute Nucleated RBC 0.000 (0.0-0.012) X10*3/uL Nucleated RBC % (auto) 0.0 (0.0-0.2) /100WBC Sodium 138 (135-145) mmol/L Potassium 3.7 (3.3-5.1) mmol/L Chloride 104 (96-108) mmol/L Carbon Dioxide 26 (22-29) mmol/L Anion Gap 12 (12-20) BUN 9 (9-16) mg/dL Creatinine 0.68 (0.5-1.4) mg/dL Estim Creat Clear Calc 111.1 Estimated GFR > 60 Random Glucose 98 (60-115) mg/dL Calcium 9.7 D (8.4-10.2) mg/dL Magnesium 1.9 (1.6-2.6) mg/dL Total Bilirubin 1.1 H (0.0-1.0) mg/dL Direct Bilirubin 0.3 (0.0-0.5) mg/dL AST 20 (5-31) U/L ALT 23 (0-31) U/L Alkaline Phosphatase 87 (39-117) U/L Total Protein 7.3 (6.5-8.0) g/dL Albumin 4.1 (3.5-5.0) g/dL Lipase 9 (8-78) U/L Urine Color Yellow Urine Appearance Clear Urine pH 6.5 (5.0-9.0) Ur Specific [place] 1.015 (1.005-1.025) Urine Protein Negative (Neg-Trace) mg/dL Urine Glucose (UA) Negative (Negative) mg/dL Urine Ketones Negative (Negative) mg/dL Urine Blood Negative (Negative) Urine Nitrite Negative (Negative) Ur Leukocyte Esterase Negative (Negative) Urine Test (NEGATIVE) 01/06/23 Range/Units 13:22 WBC (4.8-10.8) X10*3/uL RBC (4.20-5.50) X10*6/uL Hgb (12.0-16.0) g/dl Hct (37.0-47.0) % MCV (80.0-98.0) fL MCH (27.0-33.0) pg MCHC (31.0-35.0) g/dl RDW (11.0-16.0) % Plt Count (160-400) X10*3/uL MPV (9.4-12.3) fL Immature Gran % (Auto) (0.0-0.4) % Neut % (Auto) (45-73) % Lymph % (Auto) (20-40) % [place] % (Auto) (2-11) % Eos % (Auto) (0-4) % Baso % (Auto) (0-2) % Lymph # (Auto) (1.2-4.9) X10*3/uL [place] # (Auto) (0.1-1.2) X10*3/uL Eos # (Auto) (0.0-0.4) X10*3/uL Baso # (Auto) (0.0-0.2) X10*3/uL Abs Immat Gran (auto) (0.00-0.03) X10*3/uL Absolute Neuts (auto) (2.0-8.3) x10*3/uL Absolute Nucleated RBC (0.0-0.012) X10*3/uL Nucleated RBC % (auto) (0.0-0.2) /100WBC Sodium (135-145) mmol/L Potassium (3.3-5.1) mmol/L Chloride (96-108) mmol/L Carbon Dioxide (22-29) mmol/L Anion Gap (12-20) BUN (9-16) mg/dL Creatinine (0.5-1.4) mg/dL Estim Creat Clear Calc Estimated GFR Random Glucose (60-115) mg/dL Calcium (8.4-10.2) mg/dL Magnesium (1.6-2.6) mg/dL Total Bilirubin (0.0-1.0) mg/dL Direct Bilirubin (0.0-0.5) mg/dL AST (5-31) U/L ALT (0-31) U/L Alkaline Phosphatase (39-117) U/L Total Protein (6.5-8.0) g/dL Albumin (3.5-5.0) g/dL Lipase (8-78) U/L Urine Color Urine Appearance Urine pH (5.0-9.0) Ur Specific [place] (1.005-1.025) Urine Protein (Neg-Trace) mg/dL Urine Glucose (UA) (Negative) mg/dL Urine Ketones (Negative) mg/dL Urine Blood (Negative) Urine Nitrite (Negative) Ur Leukocyte Esterase (Negative) Urine Test NEGATIVE (NEGATIVE) Radiology Impression Discussion of test interpretation with radiology: I have reviewed the radiologist's reading. External Record Review External record reviewed: Inpatient record, Office record, Outpatient record, Prior outpatient labs, Prior outpatient radiology, Primary care record and Outside ED record Tests considered The following testing was considered but not selected: As above Prescription Management I considered prescription management with: Pain Medication Chronic Conditions Patient?s care impacted by: Other (Rheumatoid arthritis) Medications Administered Discontinued Medications Generic Name Dose Route Start Last Admin Trade Name Freq PRN Reason Stop Dose Admin Cyclobenzaprine HCl 5 mg 01/06/23 13:35 01/06/23 13:46 Cyclobenzaprine Hcl 5 Mg Tablet PO 01/06/23 13:36 5 mg ONCE ONE Administration Ketorolac Tromethamine 30 mg 01/06/23 11:40 01/06/23 12:10 Ketorolac Tromethamine 30 Mg/Ml Vial IM 01/06/23 11:41 30 mg ONCE ONE Administration Discharge Plan Discharge Clinical Impression: Groin strain Patient Disposition: Home, Self-Care Instructions: Groin Strain (ED) Additional Instructions: Your blood work, urine, and x-rays were reassuring You likely strained your groin Flexeril is a muscle relaxer, take at night as it makes you drowsy, do not drive, drink alcohol, or operate machinery while taking it Naproxen as an anti-inflammatory / pain medication, take with food Lidoderm patches are numbing patches, apply to painful area In addition take Tylenol at home If symptoms persist or worsen, pain becomes unbearable, you developed urinary retention or incontinence, or weakness return to the ED Prescriptions: New acetaminophen [Tylenol Extra Strength] 500 mg tablet 500 mg PO Q6H PRN (Reason: fever or pain) Qty: 14 0RF lidocaine [Lidoderm] 5 % adhesive patch,medicated 1 patch topical DAILY MDD remove after 12 hours PRN (Reason: pain) Qty: 30 0RF Rx Instructions: leave on most painful area for up to 12 hrs naproxen 500 mg tablet 500 mg PO BID PRN (Reason: pain) 10 Days Qty: 20 0RF cyclobenzaprine 5 mg tablet 5 mg PO Q8H PRN (Reason: pain (scale score 7-10)) 5 Days Qty: 14 0RF No Action albuterol sulfate 2.5 mg /3 mL (0.083 %) solution for nebulization 2.5 mg continuous nebulization QID PRN (Reason: shortness of breath or wheezing) 30 Days Qty: 120 3RF methotrexate sodium 2.5 mg tablet 20 mg PO QWEEK diclofenac sodium 75 mg tablet,delayed release (DR/EC) 75 mg PO BID PRN (Reason: pain) Humira(CF) Pen 40 mg/0.4 mL pen injector kit 40 mg subcut Q2W lidocaine [Lidoderm] 5 % adhesive patch,medicated 1 patch topical DAILY PRN Rx Instructions: leave on most painful area for up to 12 hrs budesonide-formoterol [Symbicort] 160-4.5 mcg/actuation HFA aerosol inhaler 2 puff inhalation BID 30 Days Qty: 10.2 3RF albuterol sulfate [Ventolin HFA] 90 mcg/actuation HFA aerosol inhaler 2 puff inhalation Q6-8H PRN (Reason: wheezing) Qty: 18 2RF Referrals: Josh Trammell MD [Primary Care Provider] - 3 days Stand Alone Forms: Work/School Release Interventions: ED Discharge Assessment Last Done: 01/06/23 15:20 Discharge Date/Time: 01/06/23 15:31
[2023-01-06 13:18] VITALS: BP 123/65; PULSE 76; RESP 14; TEMP 36.4; O2SAT 96
== END 2023-01-06 15:31 | disposition home or self-care (01) ==
PROVIDERS: Emergency Provider Emergency Medicine Emergency Medical Services; PCP Internal Medicine
DX: R10.30 Lower abdominal pain, unspecified (principal); J45.909 Unspecified asthma, uncomplicated; M06.9 Rheumatoid arthritis, unspecified
CPT/HCPCS: 36415; 73502; 80048; 80076; 81003; 81025; 83690; 83735; 85025; 96372; 99284; J1885

== ENCOUNTER 2025-01-04 04:02 | Emergency (ER) | payer OTHER, SELFPAY ==
--- NOTE | ~2025-01-04 | XR_ITS ---
CLINICAL HISTORY: pain Exam: AP pelvis with AP and frog-leg lateral views of the left hip. Comparison: None provided. Findings: Bony alignment of the hip joints is anatomic. No acute fracture or erosion. Joint spaces are well preserved. Impression: Unremarkable radiographs of the pelvis and left hip. This document has been electronically signed by: Erick Ferrell MD on 01/04/2025 06:11:11
[2025-01-04 04:07] VITALS: BP 142/78; PULSE 101; RESP 16; TEMP 36.9; O2SAT 99; BMI 29.2
--- NOTE | 2025-01-04 04:28 | PC.NURSE ---
assumed care of pt. UA ordered, pt advised we need urine sample. Pt states pain 8/10 started yesterday morning. pt went to work a she has RA an thought it may have been a flair up. Pt states px continued and as not let up. Pt last took Tylenol at midnight with no relief. No nausea or vomiting, no fever.
[2025-01-04 04:30] VITALS: BP 142/78; PULSE 101; RESP 16; TEMP 36.9; O2SAT 99
--- NOTE | 2025-01-04 04:45 | ED.EXTPRO ---
HPI - Extremity Problem General Chief complaint: General Medical Stated complaint: lower back pain Time Seen by Provider: 01/04/25 04:32 Source: patient and old records reviewed Mode of arrival: ambulatory Limitations: no limitations History of Present Illness ED Provider: TOMAS PINEDA Narrative: 39 yo female with PMH of RA, asthma, DAJUAN on CPAP who states since yesterday 6am she has had intermittent throbbing and spasming of the L groin that takes her L buttock. No known trauma. She has no rash, no fevers, she denies any activity to cause it. She states it feels like the muscle grabs her then she has severe pain. She states she cannot take the pain anymore. Denies numbness, weakness, urinary symptoms, abdominal pain, fevers. MD Complaint: extremity pain Onset (ago): day(s) (1) Pain Consistency: intermittent Location: left and lower extremity Quality: other (throbbing) Radiation: proximal Relieving factors: nothing Exacerbating factors: range of motion and palpation Associated symptoms: denies other symptoms Related Data Home Medications ?Medication ?Instructions ?Recorded ?Confirmed adalimumab 40 mg/0.4 mL 40 mg subcut Q2W 01/01/22 05/14/22 subcutaneous pen kit (Humira(CF) Pen) diclofenac sodium 75 mg 75 mg PO BID PRN pain 01/01/22 05/14/22 tablet,delayed release methotrexate sodium 2.5 mg tablet 20 mg PO QWEEK 01/01/22 05/14/22 lidocaine 5 % topical patch 1 patch topical DAILY PRN 11/25/22 (Lidoderm) Previous Rx's ?Medication ?Instructions ?Recorded albuterol sulfate 2.5 mg/3 mL 2.5 mg (3 mL) continuous 12/24/21 (0.083 %) solution for nebulization nebulization QID PRN shortness of breath or wheezing 30 days #120 mL Ventolin HFA 90 mcg/actuation 2 puff inhalation Q6-8H PRN 11/25/22 aerosol inhaler (albuterol sulfate) wheezing #18 grams budesonide-formoterol HFA 160 2 puff inhalation BID Asthma 30 11/25/22 mcg-4.5 mcg/actuation aerosol days #10.2 grams inhaler (Symbicort) acetaminophen 500 mg tablet 500 mg PO Q6H PRN fever or pain 01/06/23 (Tylenol Extra Strength) #14 tabs cyclobenzaprine 5 mg tablet 5 mg PO Q8H PRN pain (scale score 01/06/23 7-10) 5 days #14 tabs lidocaine 5 % topical patch 1 patch topical DAILY PRN pain #30 01/06/23 (Lidoderm) ea naproxen 500 mg tablet 500 mg PO BID PRN pain 10 days #20 01/06/23 tabs diazepam 5 mg tablet (Valium) 5 mg PO TID PRN muscle spasm #10 01/04/25 tabs Allergies Allergy/AdvReac Type Severity Reaction Status Date / Time No Known Allergies (No Known Allergy Verified 01/04/25 04:09 Allergies*) Review of Systems Review of Systems: Constitutional : No Fever, No Chills ENT/Mouth : No Ear Pain, No Hoarseness, No sore throat Eyes: No Eye Pain, No Swelling, No Redness, No Foreign Body Cardiovascular : No Chest Pain, No SOB Respiratory : No Cough, No Dyspnea Gastrointestinal : No Nausea, No Vomiting, No Diarrhea, No abdominal Pain Genitourinary : No Dysuria, No Hematuria Musculoskeletal : positive joint pain, No Myalgias, No Joint Swelling Skin : No Skin lacerations, No rash Neuro : No Weakness, No Numbness, No Loss of Consciousness, No Dizziness, No Headache All other systems reviewed and are negative [facility] Past Medical History Attestation statement: The following information was validated with the patient. Source: old records reviewed Medical History Allergic rhinitis Smoker Rheumatoid arthritis DAJUAN on CPAP COVID Tendinitis Asthma Rheumatoid arthritis Surgical History History of tubal ligation Family History Family History Mother Arthritis Father Arthritis Social History Social History Housing: Apartment Alcohol intake: unknown Patient Tobacco Use Status: Current someday Tobacco user Tobacco use type: Cigarette Cigarettes Per Day: 2 Smoked in Last 30 Days: Yes e-Cigarette/Vaping Use: Never Used Second Hand Smoke Exposure: No Use of substances other than those prescribed or required for medical reasons: Yes Substance Use Type: Marijuana Advance Directives: No Do you have a plan to hurt others: No Plan service: No Current occupational status: employed Gender identity: Female Cognitive needs: No Hearing needs: No Vision needs: No Physical Exam Vital Signs: Vital Signs: Last Vital Signs Temp 98.4 F 01/04/25 04:30 Pulse 101 H 01/04/25 04:30 Resp 16 01/04/25 04:30 BP 142/78 H 01/04/25 04:30 Pulse Ox 99 01/04/25 04:30 O2 Del Method Room Air 01/04/25 04:30 BMI result Body Mass Index 29.2 Appearance: Alert. Oriented X3. No acute distress. Eyes: Pupils equal, round and reactive to light. ENT: Pharynx normal. Neck: Normal inspection. Neck supple. CVS: Normal heart rate and rhythm. Pulses normal. Respiratory: No respiratory distress. Breath sounds normal. Abdomen: Soft and nontender. Skin: Skin warm and dry. Normal skin color. Normal skin turgor. Extremities: No lower extremity edema. L thigh no mass, fem pulse intact, 2+ PT/DP, no rash, no mass, has pain in the groin, no hernia or lymphadenopathy noted Neuro: Oriented X 3. No motor deficit. No sensory deficit. CN2-12 intact Medications Administered Discontinued Medications Generic Name Dose Route Start Last Admin Trade Name Abundio PRN Reason Stop Dose Admin Hydrocodone Bitart/Acetaminophen 1 tab 01/04/25 04:43 01/04/25 05:05 Hydrocodone Bit/Acetam 5/325 Tablet PO 01/04/25 04:44 1 tab ONCE ONE Administration Diazepam 5 mg 01/04/25 04:43 01/04/25 05:05 Diazepam 5 Mg Tablet PO 01/04/25 04:44 5 mg ONCE ONE Administration Ketorolac Tromethamine 30 mg 01/04/25 04:43 01/04/25 05:05 Ketorolac Tromethamine 30 Mg/Ml Vial IM 01/04/25 04:44 30 mg ONCE ONE Administration Medical Decision Making Medical Decision Making MDM Narrative: 39 yo female with PMH of RA, asthma, DAJUAN on CPAP here with atraumatic L groin pain but on exam pulses intact, no trauma, no signs of infection or hernia - at this time given the cramping will obtain lytes. Xray for occult injury. NO swelling to suggest DVT Differential Diagnosis Differential Diagnoses: The differential diagnosis associated with the presentation includes strain, sprain, lyte abnormality, spasm Admission/Observation Consideration of admission/observation: Escalation of care including admission/observation considered feels better stable for DC Lab Data MDM Lab Attestation statement: I reviewed the patient's lab results. 01/04/25 05:05 Labs: Lab Results 01/04/25 Range/Units 05:05 Sodium 137 (135-145) mmol/L Potassium 3.5 (3.3-5.1) mmol/L Chloride 105 (96-108) mmol/L Carbon Dioxide 21 L (22-29) mmol/L Anion Gap 15 (12-20) BUN 8 L (9-16) mg/dL Creatinine 0.59 (0.5-1.4) mg/dL Estim Creat Clear Calc 127.3 Estimated GFR > 60 Random Glucose 121 H (60-115) mg/dL Calcium 9.0 D (8.4-10.2) mg/dL Magnesium 1.7 (1.6-2.6) mg/dL Independent Interpretation I performed an independent interpretation of an: Plain X-Ray (normal ) Radiology Impression Discussion of test interpretation with radiology: I have reviewed the radiologist's reading. External Record Review External record reviewed: Outpatient record Prescription Management I considered prescription management with: Pain Medication Discharge Plan Discharge Clinical Impression: Left groin pain Patient Disposition: Home, Self-Care Instructions: Groin Pain (ED) Additional Instructions: labs reassuring xray is normal no fracture rest and avoid strenuous activity CLINICAL HISTORY: pain Exam: AP pelvis with AP and frog-leg lateral views of the left hip. Comparison: None provided. Findings: Bony alignment of the hip joints is anatomic. No acute fracture or erosion. Joint spaces are well preserved. Impression: Unremarkable radiographs of the pelvis and left hip. Prescriptions: New diazepam [Valium] 5 mg tablet 5 mg PO TID PRN (Reason: muscle spasm) Qty: 10 0RF Rx Instructions: partial fill is okay No Action albuterol sulfate 2.5 mg /3 mL (0.083 %) solution for nebulization 2.5 mg continuous nebulization QID PRN (Reason: shortness of breath or wheezing) 30 Days Qty: 120 3RF acetaminophen [Tylenol Extra Strength] 500 mg tablet 500 mg PO Q6H PRN (Reason: fever or pain) Qty: 14 0RF lidocaine [Lidoderm] 5 % adhesive patch,medicated 1 patch topical DAILY MDD remove after 12 hours PRN (Reason: pain) Qty: 30 0RF Rx Instructions: leave on most painful area for up to 12 hrs naproxen 500 mg tablet 500 mg PO BID PRN (Reason: pain) 10 Days Qty: 20 0RF cyclobenzaprine 5 mg tablet 5 mg PO Q8H PRN (Reason: pain (scale score 7-10)) 5 Days Qty: 14 0RF methotrexate sodium 2.5 mg tablet 20 mg PO QWEEK diclofenac sodium 75 mg tablet,delayed release (DR/EC) 75 mg PO BID PRN (Reason: pain) Humira(CF) Pen 40 mg/0.4 mL pen injector kit 40 mg subcut Q2W lidocaine [Lidoderm] 5 % adhesive patch,medicated 1 patch topical DAILY PRN Rx Instructions: leave on most painful area for up to 12 hrs budesonide-formoterol [Symbicort] 160-4.5 mcg/actuation HFA aerosol inhaler 2 puff inhalation BID 30 Days Qty: 10.2 3RF albuterol sulfate [Ventolin HFA] 90 mcg/actuation HFA aerosol inhaler 2 puff inhalation Q6-8H PRN (Reason: wheezing) Qty: 18 2RF Stand Alone Forms: Work/School Release Print Language: Albanian
[2025-01-04] MEDS: HYDROcodone Bit/Acetam 5/325 TABLET 1 TAB PO (05:05)
--- NOTE | 2025-01-04 05:07 | PC.NURSE ---
medicated pt per mar. Pt tolerated well.
[2025-01-04 05:22] LABS: Anion Gap 15 (12-20); Blood Urea Nitrogen 8 mg/dL (9-16); Calcium 9.0 mg/dL (8.4-10.2); Carbon Dioxide 21 mmol/L (22-29); Chloride 105 mmol/L (96-108); Creatinine Clr Calc Pharmacy 127.3; Estimated Glomerular Filt Rate > 60; Magnesium 1.7 mg/dL (1.6-2.6); Potassium 3.5 mmol/L (3.3-5.1); Sodium 137 mmol/L (135-145)
[2025-01-04 06:38] VITALS: BP 140/58; PULSE 82; RESP 16; TEMP 36.9; O2SAT 97
== END 2025-01-04 06:39 | disposition home or self-care (01) ==
PROVIDERS: Emergency Provider Emergency Medicine; PCP Internal Medicine
DX: R10.32 Left lower quadrant pain (principal)
CPT/HCPCS: 36415; 73502; 80048; 83735; 96372; 99284; J1885; J2270

== ENCOUNTER → 2025-01-04 04:43 | Outpatient (BNV) | payer OTHER, SELFPAY | PROVIDERS: Emergency Provider Emergency Medicine; PCP Internal Medicine; Visit Provider Radiology Diagnostic Radiology | DX: M25.552 Pain in left hip (principal) | CPT/HCPCS: 73502 ==